=== PATIENT | male | born 1995 | race Caucasian/White ===

== ENCOUNTER 2022-06-16 18:28 | Emergency (ER) | payer OTHER ==
[~2022-06-16 18:28] MED LIST: KEFLEX CAP 500500 MG PO
[2022-06-16 19:11] LABS: HEMOGLOBIN 16.7 gm/dl (14.0-17.5); RED BLOOD COUNT 5.38 M/UL (4.20-5.50); WHITE BLOOD COUNT 7.7 K/UL (4.5-11.0)
[2022-06-16 19:41] LABS: BUN/CREATININE RATIO 16 (0-10)
[2022-06-16] MEDS ORDERED: OMEPRAZOLE20 M1 PO (21:56)
[2022-06-16] MEDS ORDERED: MELOXICAM15 MG PO (21:56)
== END 2022-06-16 22:09 | disposition home or self-care (01) ==
LOC: ER1 18:28
PROVIDERS: Emergency Medicine
DX: R07.89 Other chest pain (principal); E80.7 Disorder of bilirubin metabolism, unspecified; F17.290 Nicotine dependence, other tobacco product, uncomplicated; Z88.8 Allergy status to other drugs, medicaments and biological substances; Z20.822 Contact with and (suspected) exposure to COVID-19
CPT/HCPCS: 0240U; 71045; 80053; 82550; 82553; 84484; 85025; 93005; 99285